=== PATIENT | female | born 1995 | race Caucasian/White ===

== ENCOUNTER 2022-10-10 17:41 | Emergency (ER) | payer SELFPAY ==
[2022-10-10 17:57] VITALS: BP 144/96; PULSE 85; RESP 16; TEMP 36.7; O2SAT 100
[2022-10-10 17:59] VITALS: BP 144/96; PULSE 85; RESP 16; TEMP 36.7; O2SAT 100
--- NOTE | 2022-10-10 18:11 | ED.EXTPRO ---
HPI - Extremity Problem General Chief complaint: Extremity Problem,Nontraumatic Stated complaint: foot irritation Time Seen by Provider: 10/10/22 18:11 Source: patient Mode of arrival: ambulatory Limitations: no limitations History of Present Illness HPI Narrative: 27-year-old female presents with complaint of athlete's foot to right foot for a long period of time . States she has used several [id number] treatments with no relief. Today she states she noticed redness, swelling, tenderness and drainage from right great toe and 3rd toe. Patient is concerned for infection. Patient states she often scratches her feet at night. Also reports that she shaves hair from tops of her toes. Afebrile. All systems reviewed and negative except as noted above. Related Data Home Medications Medication Instructions Recorded Confirmed propranolol 20 mg tablet 20 mg PO DAILY 10/10/22 10/10/22 Allergies Allergy/AdvReac Type Severity Reaction Status Date / Time No Known Allergies Allergy Verified 10/10/22 17:58 Review of Systems Review of Systems: CONSTITUTIONAL: Denies fever, chills, or sweats. EYES: Denies visual changes, redness, or discharge. ENT: Denies rhinorrhea, congestion, sore throat, or otalgia. CARDIOVASCULAR: Denies chest pain, palpitations, or edema. RESPIRATORY: Denies cough or dyspnea. GASTROINTESTINAL: Denies abdominal pain, nausea, vomiting, or diarrhea. GENITOURINARY: Denies dysuria or hematuria. SKIN: Reports itchy rash concerning for athlete's foot to right foot with new erythema, swelling and tenderness to toes. MUSCULOSKELETAL: Denies back pain, joint pain, or myalgia. NEUROLOGIC: Denies headache, numbness, or weakness. PSYCHIATRIC: Denies anxiety or depression. All other systems reviewed are negative, except as documented in HPI. PMFSH Comments At time of signature, agree with nursing past medical, surgical, social and family history. There is no relevant family history pertinent to the presenting complaint. Exam Narrative: GENERAL: This is a well-nourished, well-developed patient, in no apparent distress. HEAD: normocephalic, atraumatic. EYES: PERRL. Sclera clear/white. Vision is grossly intact. EARS: External ears normal NOSE: External nose normal NECK: Neck supple, non-tender without lymphadenopathy, masses or thyromegaly. CARDIOVASCULAR: Regular rate and rhythm without murmurs, gallops, or rubs. RESPIRATORY: Clear to auscultation. Breath sounds equal bilaterally. No wheezes, rales, or rhonchi. SKIN: warm, Dry, intact with no suspicious lesions, good texture and turgor. Erythematous macerated wet appearing rash between all toes on right foot. To erythematous pustule is with swelling, tenderness on palpation. NEURO: awake, alert, and oriented to person, place and time. There were no obvious focal neurologic abnormalities. EXTREMITIES: No joint tenderness, effusion, or edema noted. Course Course Level of Care: Express Care Visit Vital Signs Vital signs: Vital Signs Temperature 36.7 C 10/10/22 17:57 Pulse Rate 85 10/10/22 17:57 Respiratory Rate 16 10/10/22 17:57 Blood Pressure 144/96 H 10/10/22 17:57 Pulse Oximetry 100 10/10/22 17:57 Oxygen Delivery Room Air 10/10/22 17:57 Temperature 36.7 C 10/10/22 17:59 Pulse Rate 85 10/10/22 17:59 Respiratory Rate 16 10/10/22 17:59 Blood Pressure 144/96 H 10/10/22 17:59 Pulse Oximetry 100 10/10/22 17:59 Oxygen Delivery Room Air 10/10/22 17:59 Reviewed MDM - Extremity (Nontraumatic) MDM Narrative Medical decision making narrative: Patient is aware of diagnosis, understands and agrees to treatment plan. Anticipatory guidance given. Patient agrees to follow-up as directed and is aware of reasons to seek care at the emergency department. Portions of this record may have been created with voice recognition software Discharge Plan Discharge Clinical Impression: Athlete's fo
== END 2022-10-10 18:32 | disposition home or self-care (01) ==
PROVIDERS: Emergency Provider Nurse Practitioner Family; PCP Family Medicine
DX: B35.3 Tinea pedis (principal); L08.9 Local infection of the skin and subcutaneous tissue, unspecified
CPT/HCPCS: 99213; G0463

== ENCOUNTER 2023-02-13 14:34 | Emergency (ER) | payer OTHER, SELFPAY ==
--- NOTE | 2023-02-13 14:41 | ED.GENADULT ---
HPI - General Adult General Stated complaint: Headache,Anxiety Time Seen by Provider: 02/13/23 14:42 Source: patient Mode of arrival: ambulatory Limitations: no limitations History of Present Illness HPI narrative: 27-year-old female presented requesting work note for today. She states she has history of anxiety and migraines, which caused her inability to go to work today. Patient takes propranolol for both but has not taken it today. She has not established with a new PCP in the area, and denies having a therapist. Denies SI/HI. Denies vision changes, nausea vomiting diarrhea, fevers or chills. Denies alcohol or drug use. Related Data Home Medications Medication Instructions Recorded Confirmed propranolol 20 mg tablet 20 mg PO DAILY 10/10/22 10/10/22 Allergies Allergy/AdvReac Type Severity Reaction Status Date / Time No Known Allergies Allergy Verified 10/10/22 17:58 Review of Systems Review of Systems: CONSTITUTIONAL: Denies body aches, fever, chills, or sweats. EYES: Denies visual changes, redness, or discharge. ENT: Denies rhinorrhea, congestion, sore throat, or otalgia. CARDIOVASCULAR: Denies chest pain, palpitations, or edema. RESPIRATORY: Denies cough or dyspnea. GASTROINTESTINAL: Denies abdominal pain, nausea, vomiting, or diarrhea. GENITOURINARY: Denies dysuria or hematuria. SKIN: Denies rash, itching, or wounds. MUSCULOSKELETAL: Denies back pain, joint pain, or myalgia. NEUROLOGIC: Reports headache, denies numbness, tingling, or weakness. PSYCH: Reports anxiety. All systems reviewed & are unremarkable except as noted in HPI and below PMFSH Past Medical History Medical History (Updated 02/13/23 @ 14:54 by Rossi Blue, NATALIE) Anxiety Migraine Comments At time of signature, I have reviewed and agree with nursing past medical, surgical, social and family history unless otherwise noted. Please see nursing chart for further information. There is no relevant family history pertinent to the presenting complaint Exam Narrative: GENERAL: Well-appearing, and in no acute distress. HEAD: Normocephalic, atraumatic. EYES: EOMI. No redness or drainage. Conjunctivae normal. ENT: Mucous membranes pink and moist. No rhinorrhea. Throat normal. Uvula midline. NECK: Normal AROM. Supple. No lymphadenopathy. CHEST: No respiratory distress. Clear to auscultation. HEART: Regular rate and rhythm. No murmur appreciated. Normal peripheral pulses. ABDOMEN: Soft, nontender, nondistended, normal active bowel sounds. EXTREMITIES: Normal range of motion. No edema. SKIN: Warm, dry, no rash. Capillary refill normal. Normal skin turgor. NEURO: No focal deficits. Alert and oriented x3. Gait steady. PSYCH: Normal affect. Appropriate interaction. no signs of depression or anxiety. Course Course Emergency Course: Patient is aware of diagnosis, understands and agrees to treatment plan. Anticipatory guidance given. Patient agrees to follow-up as directed and is aware of reasons to seek care at the emergency department. Portions of this record may have been created with voice recognition software Level of Care: Express Care Visit Medical Decision Making MDM Narrative Medical decision making narrative: Discussed physical exam findings. Advised supportive measures and signs/symptoms to go to the ER. Pt is appropriate for outpt treatment and f/u. Differential Diagnosis Differential Diagnosis: anxiety, migraine, stress Vital Signs Vital Signs: reviewed Discharge Plan Discharge Clinical Impression: Anxiety Patient Disposition: Home, Self-Care Condition: Stable Instructions: Antibiotic Form, Anxiety (ED) Additional Instructions: Recommend establishing and follow up with therapist Follow up with your primary care provider in 1 week Go to the ER for worsening symptoms or concerns Prescriptions: No Action propranolol 20 mg Tablet 20 mg PO DAILY terbinafine HCl 250 mg
[2023-02-13 14:43] VITALS: BP 134/94; PULSE 87; RESP 16; TEMP 36.2; O2SAT 100
== END 2023-02-13 14:56 | disposition home or self-care (01) ==
PROVIDERS: Emergency Provider Nurse Practitioner Family
DX: F41.9 Anxiety disorder, unspecified (principal)
CPT/HCPCS: 99211; G0463

== ENCOUNTER 2023-03-11 11:32 | Emergency (ER) | payer OTHER, SELFPAY ==
[2023-03-11 11:49] VITALS: BP 130/85; PULSE 77; RESP 18; TEMP 36.9; O2SAT 99
--- NOTE | 2023-03-11 11:56 | ED.GENADULT ---
HPI - General Adult General Chief complaint: Headache Stated complaint: migraine Time Seen by Provider: 03/11/23 11:56 Source: patient Mode of arrival: ambulatory Limitations: no limitations History of Present Illness HPI narrative: 27-year-old female patient presents to the [facility] with complaints of a headache / migraine. Patient states she does have history of migraines and does take Imitrex. Patient states she did take an Imitrex about 1 hour prior to arrival today. Patient states she is mainly here because she needs a work note due to the migraine she does not want to go to work today. Patient denies any vision changes or current photophobia. Patient denies nausea, vomiting or diarrhea. Patient states she also took some ibuprofen along with the Imitrex. Denies any other symptoms at this time. Related Data Home Medications Medication Instructions Recorded Confirmed propranolol 20 mg tablet 20 mg PO DAILY 10/10/22 10/10/22 Allergies Allergy/AdvReac Type Severity Reaction Status Date / Time No Known Allergies Allergy Verified 10/10/22 17:58 Review of Systems Review of Systems: CONSTITUTIONAL: Denies fever, chills, or sweats. EYES: Denies visual changes, redness, or discharge. ENT: Denies rhinorrhea, congestion, sore throat, or otalgia. CARDIOVASCULAR: Denies chest pain, palpitations, or edema. RESPIRATORY: Denies cough or dyspnea. GASTROINTESTINAL: Denies abdominal pain, nausea, vomiting, or diarrhea. GENITOURINARY: Denies dysuria or hematuria. SKIN: Denies rash or itching. MUSCULOSKELETAL: Denies back pain, joint pain, or myalgia. NEUROLOGIC: Positive headache, denies numbness, or weakness. PSYCHIATRIC: Denies anxiety or depression. PMFSH Past Medical History Medical History Anxiety Migraine Comments At the time of my signature I agree with nursing past medical history, surgical, social, and family history. There is no relevant family history pertinent to the presenting complaint. Exam Narrative: GENERAL: Well-appearing, well-nourished, and in no acute distress. HEAD: Normocephalic, atraumatic. EYES: PERRLA and EOM intact without limitation or complaint of pain, No photophobia. No nystagmus No FB or lesion on lid eversion. Corneas grossly clear, no obvious FB or hyphens/hypopyon. No injection to sclera. Lids and lashes clear. ENT: Nares clear, no rhinorrhea or epistaxis. Mucous membranes moist. NECK: Supple. No lymphadenopathy CHEST: Clear to auscultation. No respiratory distress. HEART: Regular rate and rhythm. No murmur heard. Normal peripheral pulses. ABDOMEN: Soft, nontender, nondistended, normal active bowel sounds. EXTREMITIES: Normal range of motion. No edema. SKIN: Warm, dry, no rash. NEURO: Alert and oriented x4, GCS 15. Cranial nerves II through XII grossly intact. No focal neurological deficits. Normal muscle strength and tone. Normal deep tendon reflexes. Negative Babinski, normal finger to nose coordination he had normal heel to scott glide. Speech is clear. Normal gait. Negative Romberg and no pronator drift Course Course Level of Care: Express Care Visit Vital Signs Vital signs: Vital Signs Temperature 36.9 C 03/11/23 11:49 Pulse Rate 77 03/11/23 11:49 Respiratory Rate 18 03/11/23 11:49 Blood Pressure 130/85 03/11/23 11:49 Pulse Oximetry 99 03/11/23 11:49 Oxygen Delivery Room Air 03/11/23 11:49 Temperature 36.9 C 03/11/23 11:49 Pulse Rate 77 03/11/23 11:49 Respiratory Rate 18 03/11/23 11:49 Blood Pressure 130/85 03/11/23 11:49 Pulse Oximetry 99 03/11/23 11:49 Oxygen Delivery Room Air 03/11/23 11:49 Vital signs reviewed. The patient has been informed that they may have pre-hypertension or Hypertension based on a BP reading in the department. I recommend that the patient call the primary care provider listed on their discharge instructions or a physician of [facility]
== END 2023-03-11 12:25 | disposition home or self-care (01) ==
PROVIDERS: Emergency Provider Nurse Practitioner Family
DX: G43.909 Migraine, unspecified, not intractable, without status migrainosus (principal)
CPT/HCPCS: 99213; G0463

== ENCOUNTER 2023-04-28 15:43 | Emergency (ER) | payer OTHER, SELFPAY ==
[2023-04-28 16:16] VITALS: BP 128/83; PULSE 65; RESP 18; TEMP 36.1; O2SAT 99
--- NOTE | 2023-04-28 16:28 | ED.URI ---
HPI - URI/Sore Throat General Chief Complaint: Upper Respiratory Infection Stated Complaint: Cough, Sore Throat Time Seen by Provider: 04/28/23 16:20 Source: patient Mode of arrival: ambulatory Limitations: no limitations History of Present Illness HPI Narrative: Julia is a 27-year-old female patient presenting to the clinic today with complaints of runny nose, cough, and sore throat x5 days. Reports she is coughing up a lot of mucus and is dark in color. Denies any chest pain or shortness of breath. Denies any fever or chills. MD elicited complaint: sore throat and nasal congestion Related Data Home Medications Medication Instructions Recorded Confirmed propranolol 20 mg tablet 40 mg PO DAILY 10/10/22 04/28/23 [id number] 250 1 tablet PO Q4-6H PRN Migraine 04/28/23 04/28/23 mg-250 mg-65 mg tablet (Excedrin Headache Migraine) Allergies Allergy/AdvReac Type Severity Reaction Status Date / Time No Known Allergies Allergy Verified 04/28/23 15:48 Review of Systems Review of Systems: Pertinent positives per HPI. Patient denies any fever, chills, rash, headache, visual changes, dizziness, shortness of breath, chest pain, palpitations, nausea, vomiting, diarrhea, constipation, abdominal pain, or any urinary issues. [facility] Past Medical History Medical History Anxiety Migraine Comments At the time of my signature, I reviewed and agree with the nursing past medical, surgical, social, and family history. There is no relevant family history pertinent to the patient complaint. Exam Narrative: General: Well-developed, obese, in no apparent distress Head: Normocephalic, atraumatic Eyes: Pupils equally round and reactive to light bilaterally, EOM intact, sclera and conjunctive clear, no discharge, lids normal Ears: TMs intact and congested ear canals clear, no drainage, grossly hearing normal. Nose: Nares patent, clear discharge, no inflammation, no sinus tenderness. Mouth: Oropharynx red without lesions or masses, good dentition, MMM. Neck: Supple, trachea midline, no enlargement of anterior or posterior cervical nodes, no thyroid masses or goiter palpable. Cardio: Regular rate and rhythm, s1 and s2 normal, no murmur appreciated. Resp: Clear to auscultation bilaterally anteriorly and posteriorly, no rhonchi, rales, wheezing or rubs Course Course Emergency Course: Portions of this record may have been created with voice recognition software. Level of Care: Express Care Visit Vital Signs Vital signs: Vital Signs Temperature 36.1 C L 04/28/23 16:16 Pulse Rate 65 04/28/23 16:16 Respiratory Rate 18 04/28/23 16:16 Blood Pressure 128/83 04/28/23 16:16 Pulse Oximetry 99 04/28/23 16:16 Oxygen Delivery Room Air 04/28/23 16:16 Temperature 36.1 C L 04/28/23 16:16 Pulse Rate 65 04/28/23 16:16 Respiratory Rate 18 04/28/23 16:16 Blood Pressure 128/83 04/28/23 16:16 Pulse Oximetry 99 04/28/23 16:16 Oxygen Delivery Room Air 04/28/23 16:16 Vital signs reviewed MDM - URI/Sore Throat MDM Narrative Medical decision making narrative: At the time of visit patient is resting comfortably on the exam table. Patient appears to be nontoxic. Labs: COVID, influenza, and strep test were all negative. We will send strep for culture. Plan: I suspect patient has URI. Supportive measures were discussed with the patient and they voiced understanding discharge instructions and agrees to treatment plan. Return precautions reviewed Differential Diagnosis Differential diagnosis: Likely upper respiratory infection, otitis media, sinusitis, viral infection, bronchitis, influenza, pharyngitis and other (COVID) Discharge Plan Discharge Clinical Impression: Upper respiratory infection Patient Disposition: Home, Self-Care Condition: Stable Instructions: Antibiotic Form, Upper Respiratory Inf
== END 2023-04-28 16:40 | disposition home or self-care (01) ==
PROVIDERS: Emergency Provider Nurse Practitioner Family
DX: J06.9 Acute upper respiratory infection, unspecified (principal); Z79.82 Long term (current) use of aspirin
CPT/HCPCS: 87081; 87880; 99213; G0463

== ENCOUNTER 2023-07-27 13:37 | Emergency (ER) | payer OTHER, SELFPAY ==
[2023-07-27 13:47] VITALS: BP 152/119; PULSE 92; RESP 14; TEMP 36.3; O2SAT 100
--- NOTE | 2023-07-27 14:02 | ED.NAVMDI ---
HPI - Nausea/Vomiting/Diarrhea General Chief complaint: Nausea/Vomiting/Diarrhea Stated complaint: Nausea,Diarrhea,Headache Time Seen by Provider: 07/27/23 13:50 Source: patient and RN notes reviewed Mode of arrival: ambulatory Limitations: no limitations History of Present Illness HPI Narrative: 28-year-old female presented for complaint of vomiting x3 days, and started with diarrhea yesterday. States she thought the vomiting was due to constipation, so she took a laxative. Pt returned yesterday from [place]. Her reports diarrhea x1 day. Denies abdominal pain, urinary symptoms, fever, blood in stool, or lethargy. States she feels a little better today and is able to tolerate sips. Related Data Home Medications Medication Instructions Recorded Confirmed propranolol 20 mg tablet 40 mg PO DAILY 10/10/22 04/28/23 levonorgestrel 21 mcg/24 hours (8 See Rx Instructions .Route .COMPLEX 04/28/23 04/28/23 yrs) 52 mg intrauterine device (Mirena) Allergies Allergy/AdvReac Type Severity Reaction Status Date / Time No Known Allergies Allergy Verified 07/27/23 13:53 Review of Systems Review of Systems: CONSTITUTIONAL: Denies body aches, fever, chills ENT: Denies rhinorrhea, congestion CARDIOVASCULAR: Denies chest pain, palpitations, or edema. RESPIRATORY: Denies cough or dyspnea. GASTROINTESTINAL: Endorses nausea, vomiting, diarrhea. Denies abdominal pain, hematochezia, melena, hematemesis GENITOURINARY: Denies dysuria, hematuria, or CVA tenderness. SKIN: Denies rash, itching, or wounds. MUSCULOSKELETAL: Denies back pain, joint pain, or myalgia. NEUROLOGIC: Denies headache, numbness, tingling, or weakness. All systems reviewed & are unremarkable except as noted in HPI and below PMFSH Past Medical History Medical History Anxiety Migraine Comments At time of signature, I have reviewed and agree with nursing past medical, surgical, social and family history unless otherwise noted. Please see nursing chart for further information. There is no relevant family history pertinent to the presenting complaint Exam Narrative: GENERAL: Well-appearing, and in no acute distress. EYES: EOMI. Conjunctivae normal. ENT: Mucous membranes pink and moist. CHEST: No respiratory distress. Clear to auscultation. HEART: Regular rate and rhythm. No murmur appreciated. Normal peripheral pulses. ABDOMEN: abd soft, nondistended, normal active bowel sounds. Nontender abdomen, No guarding, rebound tenderness, asymmetry EXTREMITIES: Normal range of motion. No edema. SKIN: Warm, dry, no rash. Capillary refill normal. Normal skin turgor. NEURO: No focal deficits. Alert and oriented x3. PSYCH: Normal affect. Course Course Emergency Course: Patient is aware of diagnosis, understands and agrees to treatment plan. Anticipatory guidance given. Patient agrees to follow-up as directed and is aware of reasons to seek care at the emergency department. Portions of this record may have been created with voice recognition software Level of Care: Express Care Visit Vital Signs Vital signs: Vital Signs Temperature 97.4 F L 07/27/23 13:47 Pulse Rate 92 07/27/23 13:47 Respiratory Rate 14 07/27/23 13:47 Blood Pressure 152/119 H 07/27/23 13:47 Pulse Oximetry 100 07/27/23 13:47 Oxygen Delivery Room Air 07/27/23 13:47 Temperature 97.4 F L 07/27/23 13:47 Pulse Rate 92 07/27/23 13:47 Respiratory Rate 14 07/27/23 13:47 Blood Pressure 152/119 H 07/27/23 13:47 Pulse Oximetry 100 07/27/23 13:47 Oxygen Delivery Room Air 07/27/23 13:47 MDM - Nausea/Vomiting/Diarrhea MDM Narrative Medical decision making narrative: Negative flu and COVID. Discussed physical exam findings. Advised supportive measures and signs/symptoms to go to the ER. Pt is appropriate for outpt treatment and f/u. Differential Diagnosis Differential diagnosis: Lik
== END 2023-07-27 14:36 | disposition home or self-care (01) ==
PROVIDERS: Emergency Provider Nurse Practitioner Family
DX: R11.2 Nausea with vomiting, unspecified (principal); R19.7 Diarrhea, unspecified; Z20.822 Contact with and (suspected) exposure to COVID-19
CPT/HCPCS: 87426; 87804; 99213; G0463

== ENCOUNTER 2023-11-25 08:08 | Emergency (ER) | payer OTHER, SELFPAY ==
[2023-11-25 08:23] VITALS: BP 112/76; PULSE 88; RESP 16; TEMP 36.3; O2SAT 98
[2023-11-25 08:54] LABS: EDSTREPNEGPOS1 Negative
--- NOTE | 2023-11-25 09:04 | ED.URI ---
HPI - URI/Sore Throat General Chief Complaint: Upper Respiratory Infection Stated Complaint: sore throat / headache Source: patient Mode of arrival: ambulatory Limitations: no limitations History of Present Illness HPI Narrative: 28-year-old female presents to [facility] with complaints of sore throat since yesterday afternoon. 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 Patient has been taking [id number] ibuprofen with minimal relief. Patient also reports bilateral ear itching. Patient denies sick contacts. Patient denies recent travel. Patient is a nonsmoker. Patient also reports intermittent upper chest pains for the past 3-5 days. Patient reports that she has similar chest pains a few years ago when she was traveling and not sleeping as much. Patient reports that she feels like this pain is due to lack of sleep. Patient refuses EKG at this time. Patient reports that she would rather contact her primary care provider tomorrow for appointment. MD elicited complaint: cough Onset (ago): hour(s) (12) Consistency: constant Severity: mild Able to tolerate fluids by mouth: Yes Exacerbating factors: swallowing Treatments prior to arrival: ibuprofen Related Data Home Medications Medication Instructions Recorded Confirmed propranolol 20 mg tablet 40 mg PO DAILY 10/10/22 11/25/23 levonorgestrel 21 mcg/24 hr (up to See Rx Instructions .Route .COMPLEX 04/28/23 11/25/23 8 years) 52 mg intrauterine device (Mirena) tirzepatide (weight loss) 5 mg/0.5 5 mg subcut WEEKLY 11/25/23 11/25/23 mL subcutaneous pen injector (Zepbound) Allergies Allergy/AdvReac Type Severity Reaction Status Date / Time No Known Allergies Allergy Verified 11/25/23 08:14 Review of Systems Constitutional: Constitutional: Reports chills, Denies fatigue, Denies fever(s) and Denies weakness ENT: Denies dizziness, Denies epistaxis, Denies nasal congestion and Reports sore throat Respiratory: Respiratory: Denies cough, Denies dyspnea and Denies wheezing Gastrointestinal: Gastrointestinal: Denies diarrhea, Denies nausea and Denies vomiting Integumentary/Breasts: Skin/Breast: Denies rash Neurologic: Denies syncope and Denies headache(s) [facility] Past Medical History Medical History (Reviewed 11/25/23 @ 09:12 by AMENA Horvath Anxiety Migraine Comments At time of signature, I agree with nursing past medical, surgical, social and family history. There is no relevant family history pertinent to the presenting complaint. Exam Const: General: healthy appearing and no acute distress Nutritional Appearance: well nourished Orientation/consciousness: patient oriented x3 Limitations: no limitations HENMT: Head: normal to inspection Ears: external ears normal, TM's normal bilaterally and EAC's normal Face/Nose/Sinus: Normal external nose present Mouth: Yes Normal oral and palatal mucosa present and Yes lip normal Teeth and gingiva: dentition normal Throat: posterior oropharynx normal and uvula midline Eyes: Conjunctivae: conjunctivae normal Direct Ophthalmoscopy: no photophobia Neck: Neck: normal visual inspection Resp: Effort & Inspection: normal respiratory effort and not labored Auscultation: clear to auscultation bilaterally, no crackles, no rales, no rhonchi and no wheezes Cardio: Rate: regular rate Rhythm: regular rhythm Heart sounds: no murmurs Skin: General skin exam: normal color Rashes: no rashes Neuro: General: patient oriented x3 Speech: normal speech Gait exam (Neuro): Normal gait present Psych: Affect: normal affect Attitude: cooperative Course Course Level of Care: Express Care Visit Vital Signs Vital signs: Vital Signs Temperature 36.3 C L 11/25/23 08:23 Pulse Rate 88 11/25/23 08:23 Respiratory Rate 16 11/25/23 08:23 Blood Pressure 112/76 11/25/23 08:23 Pulse Oximetry 98
== END 2023-11-25 09:16 | disposition home or self-care (01) ==
PROVIDERS: Emergency Provider Nurse Practitioner Family
DX: B34.9 Viral infection, unspecified (principal); Z20.822 Contact with and (suspected) exposure to COVID-19
CPT/HCPCS: 87081; 87426; 87880; 99213; G0463

== ENCOUNTER 2024-03-22 18:07 | Emergency (ER) | payer OTHER, SELFPAY ==
[2024-03-22 18:20] VITALS: BP 126/81; PULSE 92; RESP 18; TEMP 36.2; O2SAT 98
[2024-03-22 18:57] LABS: EDINFLUASCREEN Negative (Negative); EDINFLUBSCREEN Negative (Negative); EDSTREPNEGPOS1 Negative (Negative)
[2024-03-22 18:57] LABS: EDCOVIDSCREEN Negative (Negative)
--- NOTE | 2024-03-22 19:00 | ED.URI ---
HPI - URI/Sore Throat General Chief Complaint: Upper Respiratory Infection Stated Complaint: cold symptoms Source: patient and family (Significant other) Mode of arrival: ambulatory Limitations: no limitations History of Present Illness HPI Narrative: 28-year-old female presents to [facility] with complaints of nonproductive cough, sore throat, nasal congestion, runny nose and intermittent wheezing for the past 2 days. Patient has been taking [id number] DayQuil, Motrin, nasal spray and using cough drops with little relief. Patient denies nausea, vomiting, diarrhea or fevers. Patient denies sick contacts. Patient denies recent travel. Patient is nonsmoker. Patient is requesting a work excuse. MD elicited complaint: cough, sore throat, rhinorrhea and nasal congestion Onset (ago): day(s) (2-3) Able to tolerate fluids by mouth: Yes Exacerbating factors: nothing Relieving factors: nothing Treatments prior to arrival: cold medicine Related Data Home Medications ?Medication ?Instructions ?Recorded ?Confirmed ?Last Taken ?Type propranolol 20 mg tablet 40 mg PO DAILY 10/10/22 11/25/23 Unknown History levonorgestrel (Mirena) See Rx Instructions .Route .COMPLEX 04/28/23 11/25/23 Unknown History tirzepatide (weight loss) 5 mg/0.5 5 mg subcut WEEKLY 11/25/23 11/25/23 Unknown History mL subcutaneous pen injector (Zepbound) Allergies Allergy/AdvReac Type Severity Reaction Status Date / Time No Known Allergies Allergy Verified 03/22/24 18:23 Review of Systems Constitutional: Constitutional: Denies chills, Denies fatigue, Denies fever(s) and Denies weakness ENT: Denies dysphagia, Denies vertigo, Denies dizziness, Denies epistaxis, Reports nasal congestion and Reports sore throat Cardiovascular: Cardiovascular: Denies chest pain Respiratory: Respiratory: Denies chest congestion, Reports cough, Denies dyspnea and Reports wheezing Gastrointestinal: Gastrointestinal: Denies diarrhea, Denies nausea and Denies vomiting Integumentary/Breasts: Skin/Breast: Denies rash Neurologic: Denies syncope and Denies headache(s) [facility] Past Medical History Medical History Migraine Anxiety Comments At time of signature, I agree with nursing past medical, surgical, social and family history. There is no relevant family history pertinent to the presenting complaint. Exam Const: General: healthy appearing and no acute distress Nutritional Appearance: well nourished Orientation/consciousness: patient oriented x3 Limitations: no limitations HENMT: Head: normal to inspection Ears: external ears normal, TM's normal bilaterally and EAC's normal Mouth: Yes Normal oral and palatal mucosa present, Yes lip normal and Yes moist mucous membranes Teeth and gingiva: dentition normal Throat: posterior oropharynx normal and uvula midline Other: Moderate nasal congestion noted. Eyes: Conjunctivae: conjunctivae normal Resp: Effort & Inspection: normal respiratory effort and not labored Auscultation: clear to auscultation bilaterally, no crackles, no rales, no rhonchi and no wheezes Cardio: Rate: regular rate Rhythm: regular rhythm Heart sounds: no murmurs Skin: General skin exam: normal color Rashes: no rashes Wounds: no wounds Neuro: General: patient oriented x3 and moves all extremities Speech: normal speech Psych: Affect: normal affect Attitude: cooperative Course Course Level of Care: Express Care Visit Vital Signs Vital signs: Vital Signs Temperature 36.2 C L 03/22/24 18:20 Pulse Rate 92 03/22/24 18:20 Respiratory Rate 18 03/22/24 18:20 Blood Pressure 126/81 03/22/24 18:20 Pulse Oximetry 98 03/22/24 18:20 Oxygen Delivery Room Air 03/22/24 18:20 Temperature 36.2 C L 03/22/24 18:20 Pulse Rate 92 03/22/24 18:20 Respiratory Rate 18 03/22/24 18:20 Blood Pressure 126/81 03/22/24 18:20 Pulse Oximetry 98 03/22/24 18:20 Oxygen Delivery Room Air 03/22/24 18:20 MDM - URI/Sore Throat MDM Narrative Medical decision making narrative: Discussed negative lab results with patient. Patient understands that symptoms are likely viral at this time. Work excuse provided for patient. Patient agrees to continue allergy medications daily. Differential Diagnosis Differential diagnosis: Likely upper respiratory infection, otitis media and sinusitis Lab Data Labs: Lab Results 03/22/24 03/22/24 Range/Units 18:55 18:56 POC Influenza A Ag Negative (Negative) POC Influenza B Ag Negative (Negative) POC SARS CoV-2 Ag Negative (Negative) POC Grp A Strep Screen Negative (Negative) Critical Care Time Critical Care Time Critical Care Time: No Discharge Plan Discharge Clinical Impression: Viral infection Patient Disposition: Home, Self-Care Condition: Stable Instructions: Upper Respiratory Infection (ED) Additional Instructions: Continue allergy medication daily Take Flonase daily Take Medrol Dosepak as prescribed Follow-up with primary care provider if symptoms are improving proceed to the emergency room if symptoms worsen Patient Language: Yemeni Prescriptions: New methylprednisolone [Medrol (Terrance)] 4 mg tablets,dose pack See Rx Instructions .ROUTE .COMPLEX Qty: 21 0RF Rx Instructions: orally per package directions fluticasone propionate [Children's Flonase Allergy Rlf] 50 mcg/actuation spray,suspension 1 spray intranasal BID Qty: 16 0RF Rx Instructions: administer into each nostril No Action propranolol 20 mg Tablet 40 mg PO DAILY Mirena 21 mcg/24 hours (8 yrs) 52 mg Intrauterine Device See Rx Instructions .ROUTE .COMPLEX Rx Instructions: 21 mcg intrauterinely Zepbound 5 mg/0.5 mL pen injector 5 mg SUBCUT WEEKLY Follow-up/Referrals: Nancy Bueno [Other] Stand Alone Forms: Work/School Release IP Time of Disposition: 19:06
--- OUTSIDE RECORDS SUMMARY | 2024-03-29 23:30 | XMS_ITS ---
Author Organization Unknown Address [address], [place] [phone] Phone Care Team Providers Care Nuclear Engineering Technician Name Role Phone TAMARA Bella DO Attending Unavailable ARLET VALENZUELA TRAVIS Provider Of Care Linda wills Immunization Immunization Date Status Additional Notes Code Code System MMR 07/10/1998 Completed 03 CVX MMR 09/09/2002 Completed 03 CVX Hep B, adolescent or pediatric 1997 Completed 08 CVX Hep B, adolescent or pediatric 1997 Completed 08 CVX Hep B, adolescent or pediatric 04/24/1998 Completed 08 CVX Hib, unspecified formulation 1997 Completed 17 CVX Hib, unspecified formulation 1997 Completed 17 CVX Hib, unspecified formulation 01/21/1998 Completed 17 CVX Hib, unspecified formulation 01/24/1999 Completed 17 CVX varicella 07/10/1998 Completed 21 CVX varicella 10/30/2014 Completed 21 CVX HPV, quadrivalent 01/06/2015 Completed 62 C VX Hep A, ped/adol, 2 dose 10/30/2014 Completed 83 CVX Hep A, ped/adol, 2 dose 06/15/2015 Completed 83 CVX polio, unspecified formulation 1997 Completed 89 CVX polio, unspecified formulation 1997 Completed 89 CVX polio, unspecified formulation 07/10/1998 Completed 89 CVX polio, unspecified formulation 09/09/2002 Completed 89 CVX DTaP, 5 pertussis antigens 1997 Completed 10 6 CVX DTaP, 5 pertussis antigens 1997 Completed 10 6 CVX DTaP, 5 pertussis antigens 01/21/1998 Completed 10 6 CVX DTaP, 5 pertussis antigens 01/24/1999 Completed 10 6 CVX DTaP, 5 pertussis antigens 09/09/2002 Completed 10 6 CVX meningococcal MCV4P 10/30/2014 Completed 114 CVX Tdap 12/07/2009 Completed 115 CVX HPV9 10/30/2014 Completed 165 CVX HPV9 06/15/2015 Completed 165 CVX COVID-19, mRNA, LNP-S, PF, 1 00 mcg/0.5mL dose or 50 mcg/0.25mL dose 05/10/2020 Completed 207 CVX COVID-19, mRNA, LNP-S, PF, 1 00 mcg/0.5mL dose or 50 mcg/0.25mL dose 06/07/2020 Completed 207 CVX Social History Type Status Start Date End Date Code Code Syst em Smoking History Unknown if ever smoked [address] Sex Female Vital Signs Vital Sign Value Unit [place] Value [place] Unit Date/Time Recent/Initial? Code Code System Body Mass Index 44.29 kg/m2 09/10/2023 13:23 Initial 51301 -5 [facility] Systolic Blood Pressure 130 mm[Hg] 09/10/2023 13:23 Initial 8480- 6 [facility] Diastolic Blood Pressure 82 mm[Hg] 09/10/2023 13:23 Initial 8462- 4 [facility] Body Surface Area 2.30 m2 09/10/2023 13:23 Initial 3140- 1 [facility] Height 162.560 0 cm 64.00 in 09/10/2023 13:23 Initial 8302- 2 [facility] O2 Saturation 98 % 2023 13:23 Initial 38383 -5 [facility] Pulse 102.0 /min 09/10/2023 13:23 Initial 8867- 4 [facility] Respiration 18 /min 09/10/19 24 13:23 Initial 9279- 1 [facility] Temperature 36.4 Sosa 97.6 F 09/10/19 24 13:23 Initial 8310- 5 [facility] Weight 117.03 kg 258.00 lbs 09/10/2023 13:23 Initial 49300 -7 [facility] Medications Medication Start Date End Date Route Frequency Dose Code Code System Medication Instructions Home Meds Propranolol HCl 40MG Oral Tablet 10/24/2017 Unknown ORAL EVERY 12 HOURS 1 TABLET 844734 RxNorm 1 TABLET ORAL EVERY 12 HOURS Maxalt 5MG Oral Tablet 10/24/2017 09/10/19 24 BY MOUTH at beginning of migraine 1 TABLET [id number] RxNorm 1 -2 TABLET BY MOUTH at beginning of migraine; may repeat 2 hours later if migraine not improved Mirena 52MG Intrauterine Insert, Extended Release 09/10/2023 Unknown INTRAUTER INE DAILY 1 UNIT [id number] RxNorm 1 UNIT INTRAUTERI NE DAILY Zepbound 2.5 MG/0.5 ML Subcutaneous Solution 09/10/2023 09/12/19 24 SUBCUTANE AOUS WEEKLY 2.5 MILLIGRAMS [id number] RxNorm 2.5 MILLIGRAMS SUBCUTANEA OUS WEEKLY Zofran 4MG Oral Tablet 09/10/2023 09/12/19 24 ORAL EVERY 6HR NEEDED 1 TABLET 194787 RxNorm 1 TABLET ORAL EVERY 6HR NEEDED for nausea Zepbound 2.5 MG/0.5 ML Subcutaneous Solution 09/12/2023 10/08/19 24 SUBCUTANE AOUS WEEKLY 2.5 MILLIGRAMS [id number] RxNorm 2.5 MILLIGRAMS SUBCUTANEA OUS WEEKLY Zofran 4MG Oral Tablet 09/12/2023 Unknown ORAL EVERY 6HR NEEDED 1 TABLET [id number] RxNorm 1 TABLET ORAL EVERY 6HR NEEDED for nausea Zepbound 5 MG/0.5 ML Subcutaneous Solution 10/08/2023 11/06/19 24 SUBCUTANE AOUS WEEKLY 5 MILLIGRAMS [id number] RxNorm 5 MILLIGRAMS SUBCUTANEA OUS WEEKLY Zepbound 5 MG/0.5 ML Subcutaneous Solution 11/06/2023 11/12/19 24 SUBCUTANE AOUS WEEKLY 5 MILLIGRAMS [id number] RxNorm 5 MILLIGRAMS SUBCUTANEA OUS WEEKLY Zepbound 5 MG/0.5 ML Subcutaneous Solution 11/12/2023 12/25/19 24 SUBCUTANE AOUS WEEKLY 5 MILLIGRAMS [id number] RxNorm 5 MILLIGRAMS SUBCUTANEA OUS WEEKLY Zepbound 5 MG/0.5 ML Subcutaneous Solution 12/25/2023 01/30/20 24 SUBCUTANE AOUS WEEKLY 5 MILLIGRAMS [id number] RxNorm 5 MILLIGRAMS SUBCUTANEA OUS WEEKLY Zepbound 7.5 MG/0.5 ML Subcutaneous Solution 01/30/2024 Unknown SUBCUTANE AOUS WEEKLY 0.5 MILLILITER [id number] RxNorm 0.5 MILLILITER SUBCUTANEA OUS WEEKLY Assessment You had the following problems:CONSTIPATIONHYPERPARATHYROIDISMELEVATED LIVER ENZYMES LEVELPOLYPHAGIABMI 38.0 TO 38.9ESSENTIAL TREMORMIGRAINE Assessment Problems Diagnosis: Polyphagia Diagnosis Date: 09/10/2023 Addressed Date: 09/10/2023 Diagnosis: BMI 40-44.9 Diagnosis Date: 09/10/2023 Addressed Date: 09/10/2023 Hospital Discharge Instructions Should you have any questions prior to discharge, please contact a member of your healthcare team. If you have left the hospital and have any questions, please contact your primary care physician. Reason For Referral No Data Found Problems Problem Start Date Resolved Date Status Code Code System CONSTIPATION active 75078120 SNOMED- CT HYPERPARATHYROIDISM active 27644269 SNOMED-CT ELEVATED LIVER ENZYMES LEVEL active 7 17222826 SNOMED-CT POLYPHAGIA active 784447727 SNOMED-CT BMI 38.0 TO 38.9 active 587779847 SNO MED-CT ESSENTIAL TREMOR active 687637797 SNO MED-CT MIGRAINE active 37913456 SNOMED-CT BMI 40-44.9 02/25/2024 resolved 264208004 SNOMED- CT Allergies and Adverse Reactions Allergy Substance Reaction Severity Start Date Concern Status Co de Code System No Known Drug Allergies Moderate Active 935712586 SNOMED-CT Plan of Treatment Follow Up 30 min 05/12/2024 Pediatric New Pt 30 min 11/12/2015 Plan Diagnostic Plan: Labs ordered: CBC, CMP, HCG, A1C, TSH, free T4, free T3, VItamin D Medications: Start Zepbound 2.5 mg SQ weekly. Zofran 4 mg 1 tab PO q 6 hrs prn nausea. Additional Treatments: Discussed better food choices. Recommended increasing activity level with goal of exercising at least 30 minutes per day at least 5 days per week. Plan Discussion: Discussed with Patient Follow Up: Follow-Up 2 months and prn Encounters Encounter Diagnosis Start Date Code Code Sys tem Excessive eating - polyphagia 09/10/2023 610515038 SNOMED-CT Personal Care Team Section Performer Name Performer Role Active Date Inactive Da te
--- OUTSIDE RECORDS SUMMARY | 2024-03-29 23:31 | XMS_ITS ---
Author Organization Unknown Address [address], [place] [phone] Phone Care Team Providers Care Ops Analyst Name Role Phone ARLET MARTINEZP WHNP Attending Unavail able Immunization Immunization Date Status Additional Notes Code [...] Smoking History Unknown if ever smoked [address] Sex Female Medications Medication Start Date End Date Route Frequency Dose Code Code System Medication Instructions Home Meds Propranolol HCl 40MG Oral Tablet 10/24/2017 Unknown ORAL EVERY 12 HOURS 1 TABLET [id number] RxNorm 1 TABLET ORAL EVERY 12 HOURS Mirena 52MG Intrauterine Insert, Extended Release 09/10/2023 Unknown INTRAUTER INE DAILY 1 UNIT 693422 RxNorm 1 UNIT INTRAUTERIN E DAILY Zepbound 2.5 MG/0.5 ML Subcutaneous Solution 09/10/2023 09/12/19 24 SUBCUTANE AOUS WEEKLY 2.5 MILLIGRAMS [id number] RxNorm 2.5 MILLIGRAMS SUBCUTANEAO US WEEKLY Zofran 4MG Oral Tablet 09/10/2023 09/12/19 24 ORAL EVERY 6HR NEEDED 1 TABLET [id number] RxNorm 1 TABLET ORAL EVERY 6HR NEEDED for nausea Zepbound 2.5 MG/0.5 ML Subcutaneous Solution 09/12/2023 10/08/19 24 SUBCUTANE AOUS WEEKLY 2.5 MILLIGRAMS [id number] RxNorm 2.5 MILLIGRAMS SUBCUTANEAO US WEEKLY Zofran 4MG Oral Tablet 09/12/2023 Unknown ORAL EVERY 6HR NEEDED 1 TABLET 335419 RxNorm 1 TABLET ORAL EVERY 6HR NEEDED for nausea Zepbound 5 MG/0.5 ML Subcutaneous Solution 10/08/2023 11/06/19 24 SUBCUTANE AOUS WEEKLY 5 MILLIGRAMS [id number] RxNorm 5 MILLIGRAMS SUBCUTANEAO US WEEKLY Zepbound 5 MG/0.5 ML Subcutaneous Solution 11/06/2023 11/12/19 24 SUBCUTANE AOUS WEEKLY 5 MILLIGRAMS [id number] RxNorm 5 MILLIGRAMS SUBCUTANEAO US WEEKLY Zepbound 5 MG/0.5 ML Subcutaneous Solution 11/12/2023 12/25/19 24 SUBCUTANE AOUS WEEKLY 5 MILLIGRAMS [id number] RxNorm 5 MILLIGRAMS SUBCUTANEAO US WEEKLY Zepbound 5 MG/0.5 ML Subcutaneous Solution 12/25/2023 01/30/20 24 SUBCUTANE AOUS WEEKLY 5 MILLIGRAMS [id number] RxNorm 5 MILLIGRAMS SUBCUTANEAO US WEEKLY Zepbound 7.5 MG/0.5 ML Subcutaneous Solution 01/30/2024 Unknown SUBCUTANE AOUS WEEKLY 0.5 MILLILITER [id number] RxNorm 0.5 MILLILITER SUBCUTANEAO US WEEKLY Assessment You had the following problems:CONSTIPATIONHYPERPARATHYROIDISMELEVATED LIVER ENZYMES LEVELPOLYPHAGIABMI 38.0 TO 38.9ESSENTIAL TREMORMIGRAINE Hospital Discharge Instructions Should you have any questions prior to discharge, please contact a member of your healthcare team. If you have left the hospital and have any questions, please contact your primary care physician. Reason For Referral No Data Found Problems Problem Start Date Resolved Date Status Code Code System CONSTIPATION active 02200364 SNOMED- CT HYPERPARATHYROIDISM active 79513089 SNOMED-CT ELEVATED LIVER ENZYMES LEVEL active 7 39260450 SNOMED-CT POLYPHAGIA active 216105905 SNOMED-CT BMI 38.0 TO 38.9 active 455515084 SNO MED-CT ESSENTIAL TREMOR active 108574308 SNO MED-CT MIGRAINE active 92535412 SNOMED-CT BMI 40-44.9 02/25/2024 resolved 520516943 SNOMED- CT Allergies and Adverse Reactions Allergy Substance Reaction Severity Start Date Concern Status Co de Code System No Known Drug Allergies Moderate Active 068750275 SNOMED-CT Plan of Treatment Follow Up 30 min 05/12/2024 Pediatric New Pt 30 min 11/12/2015 Encounters Encounter Diagnosis Start Date Code Code Sys tem Canceled operative procedure 09/10/2023 30732797 SNOMED-CT Personal Care Team Section Performer Name Performer Role Active Date Inactive Da te
--- OUTSIDE RECORDS SUMMARY | 2024-03-29 23:31 | XMS_ITS ---
Author Organization Unknown Address [address], [place] [phone] Phone Care Team Providers Care Sagger Maker Name Role Phone TAMARA Bella DO Attending Unavailable Immunization Immunization Date Status Additional Notes Code [...] Smoking History Unknown if ever smoked [address] Sex Female Vital Signs Vital Sign Value Unit [place] Value [place] Unit Date/Time Recent/Initial? Code Code System Body Mass Index 41.20 kg/m2 11/12/2023 09:13 Initial 18863 -5 [facility] Systolic Blood Pressure 124 mm[Hg] 11/12/2023 09:13 Initial 8480- 6 [facility] Diastolic Blood Pressure 78 mm[Hg] 11/12/2023 09:13 Initial 8462- 4 [facility] Body Surface Area 2.22 m2 11/12/2023 09:13 Initial 3140- 1 [facility] Height 162.560 0 cm 64.00 in 11/12/2023 09:13 Initial 8302- 2 [facility] O2 Saturation 98 % 2023 09:13 Initial 11445 -5 [facility] Pulse 83.0 /min 11/12/2023 09:13 Initial 8867- 4 [facility] Respiration 20 /min 11/12/19 24 09:13 Initial 9279- 1 [facility] Temperature 36.6 Sosa 97.9 F 11/12/19 24 09:13 Initial 8310- 5 [facility] Weight 108.86 kg 240.00 lbs 11/12/2023 09:13 Initial 15387 -7 [facility] Medications Medication Start Date End Date Route Frequency Dose Code Code System Medication Instructions Home Meds Propranolol HCl 40MG Oral Tablet 10/24/2017 Unknown ORAL EVERY 12 HOURS 1 TABLET 483549 RxNorm 1 TABLET ORAL EVERY 12 HOURS Mirena 52MG Intrauterine Insert, Extended Release 09/10/2023 Unknown INTRAUTER INE DAILY 1 UNIT 415512 RxNorm 1 UNIT INTRAUTERIN E DAILY Zofran 4MG Oral Tablet 09/12/2023 Unknown ORAL EVERY 6HR NEEDED 1 TABLET 388237 RxNorm 1 TABLET ORAL EVERY 6HR NEEDED for nausea Zepbound 5 MG/0.5 ML Subcutaneous Solution 11/06/2023 11/12/19 24 SUBCUTANE AOUS WEEKLY 5 MILLIGRAMS [id number] RxNorm 5 MILLIGRAMS SUBCUTANEAO US WEEKLY Zepbound 5 MG/0.5 ML Subcutaneous Solution 11/12/2023 12/25/19 24 SUBCUTANE AOUS WEEKLY 5 MILLIGRAMS [id number] RxNorm 5 MILLIGRAMS SUBCUTANEAO US WEEKLY Zepbound 5 MG/0.5 ML Subcutaneous Solution 12/25/2023 01/30/20 24 SUBCUTANE AOUS WEEKLY 5 MILLIGRAMS [id number] RxNorm 5 MILLIGRAMS SUBCUTANEAO US WEEKLY Zepbound 7.5 MG/0.5 ML Subcutaneous Solution 01/30/2024 Unknown SUBCUTANE AOUS WEEKLY 0.5 MILLILITER [id number] RxNorm 0.5 MILLILITER SUBCUTANEAO US WEEKLY Assessment You had the following problems:CONSTIPATIONHYPERPARATHYROIDISMELEVATED LIVER ENZYMES LEVELPOLYPHAGIABMI 38.0 TO 38.9ESSENTIAL TREMORMIGRAINE Assessment Problems Diagnosis: Polyphagia Diagnosis Date: 09/10/2023 Addressed Date: 11/12/2023 Diagnosis: BMI 40-44.9 Diagnosis Date: 09/10/2023 Addressed Date: 11/12/2023 Hospital Discharge Instructions Should you have any questions prior to discharge, please contact a member of your healthcare team. If you have left the hospital and have any questions, please contact your primary care physician. Reason For Referral No Data Found Problems Problem Start Date Resolved Date Status Code Code System CONSTIPATION active 07164697 SNOMED- CT HYPERPARATHYROIDISM active 63942068 SNOMED-CT ELEVATED LIVER ENZYMES LEVEL active 7 10707221 SNOMED-CT POLYPHAGIA active 471301482 SNOMED-CT BMI 38.0 TO 38.9 active 094175261 SNO MED-CT ESSENTIAL TREMOR active 302081949 SNO MED-CT MIGRAINE active 73925004 SNOMED-CT BMI 40-44.9 02/25/2024 resolved 995066056 SNOMED- CT Allergies and Adverse Reactions Allergy Substance Reaction Severity Start Date Concern Status Co de Code System No Known Drug Allergies Moderate Active 234641234 SNOMED-CT Plan of Treatment Follow Up 30 min 05/12/2024 Pediatric New Pt 30 min 11/12/2015 Plan Medications: Refilled Zepbound 5 mg SQ weekly. Recommended OTC Vitamin D 2000 IU's daily. Plan Discussion: Discussed with Patient, Discussed better food choices. Recommended increasing activity level with goal of exercising at least 30 minutes per day at least 5 days per week. Follow Up: Follow-Up 3 months and prn Encounters Encounter Diagnosis Start Date Code Code Sys tem Excessive eating - polyphagia 11/12/2023 464481470 SNOMED-CT Personal Care Team Section Performer Name Performer Role Active Date Inactive Da te
--- OUTSIDE RECORDS SUMMARY | 2024-03-29 23:32 | XMS_ITS ---
Author Organization Unknown Address [address] [place], [place] [id number] Phone Care Team Providers Care Folder Machine Name Role Phone TAMARA Bella DO Attending [...] Smoking History Unknown if ever smoked [id number] Sex Female Vital Signs Vital Sign Value Unit National City Value [place] City Unit Date/Time Recent/Initial? Code Code System Body Mass Index 38.96 kg/m2 02/11/2024 11:44 Initial 16657 -5 [facility] Systolic Blood Pressure 118 mm[Hg] 02/11/2024 11:44 Initial 8480- 6 [facility] Diastolic Blood Pressure 78 mm[Hg] 02/11/2024 11:44 Initial 8462- 4 [facility] Body Surface Area 2.16 m2 02/11/2024 11:44 Initial 3140- 1 [facility] Height 162.560 0 cm 64.00 in 02/11/2024 11:44 Initial 8302- 2 [facility] O2 Saturation 99 % 2023 11:44 Initial 11034 -5 [facility] Pulse 85.0 /min 02/11/2024 11:44 Initial 8867- 4 [facility] Respiration 20 /min 02/11/20 11:44 Initial 9279- 1 [facility] Temperature 36.7 Sosa 98.0 F 02/11/20 24 11:44 Initial 8310- 5 [facility] Weight 102.97 kg 227.00 lbs 02/11/2024 11:44 Initial 06948 -7 [facility] Medications Medication Start Date End Date Route Frequency Dose Code Code System Medication Instructions Home Meds Propranolol HCl 40MG Oral Tablet 10/24/2017 Unknown ORAL EVERY 12 HOURS 1 TABLET 353738 RxNorm 1 TABLET ORAL EVERY 12 HOURS Mirena 52MG Intrauterine Insert, Extended Release 09/10/2023 Unknown INTRAUTER INE DAILY 1 UNIT 585003 RxNorm 1 UNIT INTRAUTERIN E DAILY Zofran 4MG Oral Tablet 09/12/2023 Unknown ORAL EVERY 6HR NEEDED 1 TABLET 347301 RxNorm 1 TABLET ORAL EVERY 6HR NEEDED for nausea Zepbound 7.5 MG/0.5 ML Subcutaneous Solution 01/30/2024 Unknown SUBCUTANE AOUS WEEKLY 0.5 MILLILITER 6899081 RxNorm 0.5 MILLILITER SUBCUTANEAO US WEEKLY Assessment You had the following problems:CONSTIPATIONHYPERPARATHYROIDISMELEVATED LIVER ENZYMES LEVELPOLYPHAGIABMI 38.0 TO 38.9ESSENTIAL TREMORMIGRAINE Assessment Problems Diagnosis: Constipation Diagnosis Date: 02/11/2024 Addressed Date: 02/11/2024 Diagnosis: Hyperparathyroidism Diagnosis Date: 02/11/2024 Addressed Date: 02/11/2024 Diagnosis: Elevated liver enzymes level Diagnosis Date: 02/11/2024 Addressed Date: 02/11/2024 Diagnosis: Polyphagia Diagnosis Date: 09/10/2023 Addressed Date: 02/11/2024 Diagnosis: BMI 38.0 to 38.9 Diagnosis Date: 02/11/2024 Addressed Date: 02/11/2024 Hospital Discharge Instructions Should you have any questions prior to discharge, please contact a member of your healthcare team. If you have left the hospital and have any questions, please contact your primary care physician. Reason For Referral No Data Found Problems Problem Start Date Resolved Date Status Code Code System CONSTIPATION active 15588296 SNOMED- CT HYPERPARATHYROIDISM active 22703042 SNOMED-CT ELEVATED LIVER ENZYMES LEVEL active 7 64186780 SNOMED-CT POLYPHAGIA active 576914184 SNOMED-CT BMI 38.0 TO 38.9 active 820359245 [facility] MED-CT ESSENTIAL TREMOR active 537857358 [facility]O [facility]-CT MIGRAINE active 91597861 SNOMED-CT BMI 40-44.9 02/25/2024 resolved 847110914 SNOMED- CT Allergies and Adverse Reactions Allergy Substance Reaction Severity Start Date Concern Status Co de Code System No Known Drug Allergies Moderate Active 038007499 SNOMED-CT Plan of Treatment Follow Up 30 min 05/12/2024 Pediatric New Pt 30 min 11/12/2015 Plan Diagnostic Plan: Repeat labs: CMP, PTH, Vitamin D. Medications: Continue Zepbound 7.5 mg SQ weekly at this time--patient will call when she needs a refill and can increase to 10 mg SQ weekly if patient wishes and/or if insurance will not approved 7.5 mg again. Samples of Linzess 72 mcg given with instructions to take 1 tab PO at least 30 minutes before breakfast. Advised patient to call our office if she would like a prescription for Linzess. Additional Treatments: Can refer to endocrinology if PTH remains elevated. Plan Discussion: Discussed with Patient Follow Up: Follow-Up 3 months and prn Encounters Encounter Diagnosis Start Date Code Code Sys tem Constipation 02/11/2024 32840314 SNOMED-CT Personal Care Team Section Performer Name Performer Role Active Date Inactive Da te
--- OUTSIDE RECORDS SUMMARY | 2024-03-29 23:32 | XMS_ITS ---
Author Organization Unknown Address [address] [place], [place] [phone] Phone Care Team Providers Care Manager Engagement Name Role Phone TAMARA Bella DO Attending [...] Smoking History Unknown if ever smoked [id number] Sex Female Vital Signs Vital Sign Value Unit [place] Value [place] Unit Date/Time Recent/Initial? Code Code System Body Mass Index 44.29 kg/m2 09/10/2023 13:23 Initial 73692 -5 [facility] Systolic Blood Pressure 130 mm[Hg] 09/10/2023 13:23 Initial 8480- 6 [facility] Diastolic Blood Pressure 82 mm[Hg] 09/10/2023 13:23 Initial 8462- 4 [facility] Body Surface Area 2.30 m2 09/10/2023 13:23 Initial 3140- 1 [facility] Height 162.560 0 cm 64.00 in 09/10/2023 13:23 Initial 8302- 2 [facility] O2 Saturation 98 % 2023 13:23 Initial 80231 -5 [facility] Pulse 102.0 /min 09/10/2023 13:23 Initial 8867- 4 [facility] Respiration 18 /min 09/10/19 24 13:23 Initial 9279- 1 [facility] Temperature 36.4 Sosa 97.6 F 09/10/19 24 13:23 Initial 8310- 5 [facility] Weight 117.03 kg 258.00 lbs 09/10/2023 13:23 Initial 77599 -7 [facility] Medications Medication Start Date End Date Route Frequency Dose Code Code System Medication Instructions Home Meds Propranolol HCl 40MG Oral Tablet 10/24/2017 Unknown ORAL EVERY 12 HOURS 1 TABLET 043784 RxNorm 1 TABLET ORAL EVERY 12 HOURS Maxalt 5MG Oral Tablet 10/24/2017 09/10/19 24 BY MOUTH at beginning of migraine 1 TABLET 091070 RxNorm 1 -2 TABLET BY MOUTH at beginning of migraine; may repeat 2 hours later if migraine not improved Mirena 52MG Intrauterine Insert, Extended Release 09/10/2023 Unknown INTRAUTER INE DAILY 1 UNIT 812592 RxNorm 1 UNIT INTRAUTERI NE DAILY Zepbound 2.5 MG/0.5 ML Subcutaneous Solution 09/10/2023 09/12/19 24 SUBCUTANE AOUS WEEKLY 2.5 MILLIGRAMS 2212289 RxNorm 2.5 MILLIGRAMS SUBCUTANEA OUS WEEKLY Zofran 4MG Oral Tablet 09/10/2023 09/12/19 24 ORAL EVERY 6HR NEEDED 1 TABLET 543213 RxNorm 1 TABLET ORAL EVERY 6HR NEEDED for nausea Zepbound 2.5 MG/0.5 ML Subcutaneous Solution 09/12/2023 10/08/19 24 SUBCUTANE AOUS WEEKLY 2.5 MILLIGRAMS [id number] RxNorm 2.5 MILLIGRAMS SUBCUTANEA OUS WEEKLY Zofran 4MG Oral Tablet 09/12/2023 Unknown ORAL EVERY 6HR NEEDED 1 TABLET 079224 RxNorm 1 TABLET ORAL EVERY 6HR NEEDED for nausea Zepbound 5 MG/0.5 ML Subcutaneous Solution 10/08/2023 11/06/19 24 SUBCUTANE AOUS WEEKLY 5 MILLIGRAMS [id number] RxNorm 5 MILLIGRAMS SUBCUTANEA OUS WEEKLY Zepbound 5 MG/0.5 ML Subcutaneous Solution 11/06/2023 11/12/19 24 SUBCUTANE AOUS WEEKLY 5 MILLIGRAMS [id number] RxNorm 5 MILLIGRAMS SUBCUTANEA OUS WEEKLY Zepbound 5 MG/0.5 ML Subcutaneous Solution 11/12/2023 12/25/19 24 SUBCUTANE AOUS WEEKLY 5 MILLIGRAMS [id number] RxNorm 5 MILLIGRAMS SUBCUTANEA OUS WEEKLY Zepbound 5 MG/0.5 ML Subcutaneous Solution 12/25/2023 01/30/20 24 SUBCUTANE AOUS WEEKLY 5 MILLIGRAMS [id number] RxNorm 5 MILLIGRAMS SUBCUTANEA OUS WEEKLY Zepbound 7.5 MG/0.5 ML Subcutaneous Solution 01/30/2024 Unknown SUBCUTANE AOUS WEEKLY 0.5 MILLILITER 8828680 RxNorm 0.5 MILLILITER SUBCUTANEA OUS WEEKLY Assessment [...] Date Status Code Code System CONSTIPATION active 59164980 SNOMED- CT HYPERPARATHYROIDISM active 64322417 SNOMED-CT ELEVATED LIVER ENZYMES LEVEL active 7 26101559 SNOMED-CT POLYPHAGIA active 151825235 SNOMED-CT BMI 38.0 TO 38.9 active 100053088 [facility]-CT ESSENTIAL TREMOR active 251925507 SNO MED-CT MIGRAINE active 24547171 SNOMED-CT BMI 40-44.9 02/25/2024 resolved 697732833 SNOMED- CT Allergies and Adverse Reactions Allergy Substance Reaction Severity Start Date Concern Status Co de Code System No Known Drug Allergies Moderate Active 064739020 SNOMED-CT Plan of Treatment Follow Up 30 [...] Sys tem Excessive eating - polyphagia 09/10/2023 671973274 SNOMED-CT Personal Care Team Section Performer Name Performer Role Active Date Inactive Da te
--- OUTSIDE RECORDS SUMMARY | 2024-03-29 23:32 | XMS_ITS ---
Author Organization Unknown Address [address] [place], [place] [phone] Phone Care Team Providers Care Automat Watcher Name Role Phone ARLET MARTINEZP WHNP Attending [...] Smoking History Unknown if ever smoked [address] Sex Female Medications Medication Start Date End Date Route Frequency Dose Code Code System Medication Instructions Home Meds Propranolol HCl 40MG Oral Tablet 10/24/2017 Unknown ORAL EVERY 12 HOURS 1 TABLET 043600 RxNorm 1 TABLET ORAL EVERY 12 HOURS Mirena 52MG Intrauterine Insert, Extended Release 09/10/2023 Unknown INTRAUTER INE DAILY 1 UNIT 082340 RxNorm 1 UNIT INTRAUTERIN E DAILY Zepbound 2.5 MG/0.5 ML Subcutaneous Solution 09/10/2023 09/12/19 24 SUBCUTANE AOUS WEEKLY 2.5 MILLIGRAMS 7079616 RxNorm 2.5 MILLIGRAMS SUBCUTANEAO US WEEKLY Zofran 4MG Oral Tablet 09/10/2023 09/12/19 24 ORAL EVERY 6HR NEEDED 1 TABLET 856464 RxNorm 1 TABLET ORAL EVERY 6HR NEEDED for nausea Zepbound 2.5 MG/0.5 ML Subcutaneous Solution 09/12/2023 10/08/19 24 SUBCUTANE AOUS WEEKLY 2.5 MILLIGRAMS 6647498 RxNorm 2.5 MILLIGRAMS SUBCUTANEAO US WEEKLY Zofran 4MG Oral Tablet 09/12/2023 Unknown ORAL EVERY 6HR NEEDED 1 TABLET 955026 RxNorm 1 TABLET ORAL EVERY 6HR NEEDED for nausea Zepbound 5 MG/0.5 ML Subcutaneous Solution 10/08/2023 11/06/19 24 SUBCUTANE AOUS WEEKLY 5 MILLIGRAMS [id number] RxNorm 5 MILLIGRAMS SUBCUTANEAO US WEEKLY Zepbound 5 MG/0.5 ML Subcutaneous Solution 11/06/2023 11/12/19 24 SUBCUTANE AOUS WEEKLY 5 MILLIGRAMS [id number] RxNorm 5 MILLIGRAMS SUBCUTANEAO US WEEKLY Zepbound 5 MG/0.5 ML Subcutaneous Solution 11/12/2023 12/25/19 24 SUBCUTANE AOUS WEEKLY 5 MILLIGRAMS [id number] RxNorm 5 MILLIGRAMS SUBCUTANEAO US WEEKLY Zepbound 5 MG/0.5 ML Subcutaneous Solution 12/25/2023 01/30/20 24 SUBCUTANE AOUS WEEKLY 5 MILLIGRAMS [id number] RxNorm 5 MILLIGRAMS SUBCUTANEAO US WEEKLY Zepbound 7.5 MG/0.5 ML Subcutaneous Solution 01/30/2024 Unknown SUBCUTANE AOUS WEEKLY 0.5 MILLILITER 4328101 RxNorm 0.5 MILLILITER SUBCUTANEAO US WEEKLY Assessment [...] Date Status Code Code System CONSTIPATION active 53859791 SNOMED- CT HYPERPARATHYROIDISM active 13590404 SNOMED-CT ELEVATED LIVER ENZYMES LEVEL active 7 38838717 SNOMED-CT POLYPHAGIA active 264134874 SNOMED-CT BMI 38.0 TO 38.9 active 786783306 SNO MED-CT ESSENTIAL TREMOR active 518798138 SNO MED-CT MIGRAINE active 00874774 SNOMED-CT BMI 40-44.9 02/25/2024 resolved 821537928 SNOMED- CT Allergies and Adverse Reactions Allergy Substance Reaction Severity Start Date Concern Status Co de Code System No Known Drug Allergies Moderate Active 407243040 SNOMED-CT Plan of Treatment Follow Up 30 min 05/12/2024 Pediatric New Pt 30 min 11/12/2015 Encounters Encounter Diagnosis Start Date Code Code Sys tem Canceled operative procedure 09/10/2023 33435388 SNOMED-CT Personal Care Team Section Performer Name Performer Role Active Date Inactive Da te
--- OUTSIDE RECORDS SUMMARY | 2024-03-29 23:32 | XMS_ITS ---
Author Organization Unknown Address [address] [place], [place] [phone] Phone Care Team Providers Care Poleyard Supervisor Name Role Phone TAMARA Bella DO Attending [...] Smoking History Unknown if ever smoked [address] Sex Female Vital Signs Vital Sign Value Unit [place] Value [place] Unit Date/Time Recent/Initial? Code Code System Body Mass Index 41.20 kg/m2 11/12/2023 09:13 Initial 55295 -5 [facility] Systolic Blood Pressure 124 mm[Hg] 11/12/2023 09:13 Initial 8480- 6 [facility] Diastolic Blood Pressure 78 mm[Hg] 11/12/2023 09:13 Initial 8462- 4 [facility] Body Surface Area 2.22 m2 11/12/2023 09:13 Initial 3140- 1 [facility] Height 162.560 0 cm 64.00 in 11/12/2023 09:13 Initial 8302- 2 [facility] O2 Saturation 98 % 2023 09:13 Initial 08387 -5 [facility] Pulse 83.0 /min 11/12/2023 09:13 Initial 8867- 4 [facility] Respiration 20 /min 11/12/19 24 09:13 Initial 9279- 1 [facility] Temperature 36.6 Sosa 97.9 F 11/12/19 24 09:13 Initial 8310- 5 [facility] Weight 108.86 kg 240.00 lbs 11/12/2023 09:13 Initial 34453 -7 [facility] Medications Medication Start Date End Date Route Frequency Dose Code Code System Medication Instructions Home Meds Propranolol HCl 40MG Oral Tablet 10/24/2017 Unknown ORAL EVERY 12 HOURS 1 TABLET 599732 RxNorm 1 TABLET ORAL EVERY 12 HOURS Mirena 52MG Intrauterine Insert, Extended Release 09/10/2023 Unknown INTRAUTER INE DAILY 1 UNIT 369376 RxNorm 1 UNIT INTRAUTERIN E DAILY Zofran 4MG Oral Tablet 09/12/2023 Unknown ORAL EVERY 6HR NEEDED 1 TABLET 977576 RxNorm 1 TABLET ORAL EVERY 6HR NEEDED for nausea Zepbound 5 MG/0.5 ML Subcutaneous Solution 11/06/2023 11/12/19 24 SUBCUTANE AOUS WEEKLY 5 MILLIGRAMS [id number] RxNorm 5 MILLIGRAMS SUBCUTANEAO US WEEKLY Zepbound 5 MG/0.5 ML Subcutaneous Solution 11/12/2023 12/25/19 24 SUBCUTANE AOUS WEEKLY 5 MILLIGRAMS [id number] RxNorm 5 MILLIGRAMS SUBCUTANEAO US WEEKLY Zepbound 5 MG/0.5 ML Subcutaneous Solution 12/25/2023 01/30/20 24 SUBCUTANE AOUS WEEKLY 5 MILLIGRAMS [id number] RxNorm 5 MILLIGRAMS SUBCUTANEAO US WEEKLY Zepbound 7.5 MG/0.5 ML Subcutaneous Solution 01/30/2024 Unknown SUBCUTANE AOUS WEEKLY 0.5 MILLILITER 4339003 RxNorm 0.5 MILLILITER SUBCUTANEAO US WEEKLY Assessment [...] Date Status Code Code System CONSTIPATION active 92166743 SNOMED- CT HYPERPARATHYROIDISM active 04689971 SNOMED-CT ELEVATED LIVER ENZYMES LEVEL active 7 90452317 SNOMED-CT POLYPHAGIA active 198067576 SNOMED-CT BMI 38.0 TO 38.9 active 662354326 SNO MED-CT ESSENTIAL TREMOR active 119685548 SNO MED-CT MIGRAINE active 46279084 SNOMED-CT BMI 40-44.9 02/25/2024 resolved 611616634 SNOMED- CT Allergies and Adverse Reactions Allergy Substance Reaction Severity Start Date Concern Status Co de Code System No Known Drug Allergies Moderate Active 116233892 SNOMED-CT Plan of Treatment Follow Up 30 [...] Sys tem Excessive eating - polyphagia 11/12/2023 465113673 SNOMED-CT Personal Care Team Section Performer Name Performer Role Active Date Inactive Da te
--- OUTSIDE RECORDS SUMMARY | 2024-03-29 23:33 | XMS_ITS ---
Author Organization Unknown Address [address] [place], [place] [phone] Phone Care Team Providers Care Application Administrator Name Role Phone TAMARA Bella DO Attending [...] Smoking History Unknown if ever smoked [address] Sex Female Vital Signs Vital Sign Value Unit [place] Value [place] Unit Date/Time Recent/Initial? Code Code System Body Mass Index 38.96 kg/m2 02/11/2024 11:44 Initial 01357 -5 [facility] Systolic Blood Pressure 118 mm[Hg] 02/11/2024 11:44 Initial 8480- 6 [facility] Diastolic Blood Pressure 78 mm[Hg] 02/11/2024 11:44 Initial 8462- 4 [facility] Body Surface Area 2.16 m2 02/11/2024 11:44 Initial 3140- 1 [facility] Height 162.560 0 cm 64.00 in 02/11/2024 11:44 Initial 8302- 2 [facility] O2 Saturation 99 % 2023 11:44 Initial 58477 -5 [facility] Pulse 85.0 /min 02/11/2024 11:44 Initial 8867- 4 [facility] Respiration 20 /min 02/11/20 11:44 Initial 9279- 1 [facility] Temperature 36.7 Sosa 98.0 F 02/11/20 24 11:44 Initial 8310- 5 [facility] Weight 102.97 kg 227.00 lbs 02/11/2024 11:44 Initial 26601 -7 [facility] Medications Medication Start Date End Date Route Frequency Dose Code Code System Medication Instructions Home Meds Propranolol HCl 40MG Oral Tablet 10/24/2017 Unknown ORAL EVERY 12 HOURS 1 TABLET 752686 RxNorm 1 TABLET ORAL EVERY 12 HOURS Mirena 52MG Intrauterine Insert, Extended Release 09/10/2023 Unknown INTRAUTER INE DAILY 1 UNIT 414155 RxNorm 1 UNIT INTRAUTERIN E DAILY Zofran 4MG Oral Tablet 09/12/2023 Unknown ORAL EVERY 6HR NEEDED 1 TABLET 598288 RxNorm 1 TABLET ORAL EVERY 6HR NEEDED for nausea Zepbound 7.5 MG/0.5 ML Subcutaneous Solution 01/30/2024 Unknown SUBCUTANE AOUS WEEKLY 0.5 MILLILITER 4360722 RxNorm 0.5 MILLILITER SUBCUTANEAO US WEEKLY Assessment [...] Date Status Code Code System CONSTIPATION active 36711328 SNOMED- CT HYPERPARATHYROIDISM active 39947487 SNOMED-CT ELEVATED LIVER ENZYMES LEVEL active 7 07716974 SNOMED-CT POLYPHAGIA active 509825232 SNOMED-CT BMI 38.0 TO 38.9 active 224281896 [facility]-CT ESSENTIAL TREMOR active 836280842 SNO MED-CT MIGRAINE active 73108504 SNOMED-CT BMI 40-44.9 02/25/2024 resolved 990384205 SNOMED- CT Allergies and Adverse Reactions Allergy Substance Reaction Severity Start Date Concern Status Co de Code System No Known Drug Allergies Moderate Active 627065440 SNOMED-CT Plan of Treatment Follow Up 30 [...] Date Code Code Sys tem Constipation 02/11/2024 34800132 SNOMED-CT Personal Care Team Section Performer Name Performer Role Active Date Inactive Da te
== END 2024-03-22 19:10 | disposition home or self-care (01) ==
PROVIDERS: Emergency Provider Nurse Practitioner Family
DX: B34.9 Viral infection, unspecified (principal); Z20.822 Contact with and (suspected) exposure to COVID-19
CPT/HCPCS: 87081; 87426; 87804; 87880; 99213; G0463